=== PATIENT | female | born 1990 | race Caucasian/White ===

== ENCOUNTER 2017-10-07 07:58 | Inpatient (IN) | payer SELFPAY ==
[2017-10-07] MEDS ORDERED: BRETHINE IVP PRN (10:08)
[2017-10-07] MEDS ORDERED: STADOL IV PRN (10:08)
[2017-10-07] MEDS ORDERED: ePHEDrine SULFATE IV PRN ×2 (10:08→20:23)
[2017-10-07] MEDS ORDERED: XYLOCAINE 2% INFILTRATI ONE (10:08)
[2017-10-07] MEDS ORDERED: BRETHINE SUB-Q PRN (10:08)
--- NOTE | 2017-10-07 10:42 | History and Physical Report ---
History of Present Illness Date of examination: 10/07/17 Date of admission: 10/07/17 07:58 Chief complaint: Presents for a scheduled induction due to SGA History of present illness: Early entry to care, 2nd trimester complicated by migraine HAs, given Fioricet. Third trimester complicated by labor concerns, received Betamethasome series 08/18 at [place], also complicated by small for gestational age. Past History Past Medical History: neurologic (Migraine HAs) Past Surgical History: other (Lasik (2016); Rhinoplasty (2017)) SUPPORT MERCHANDISER History: abnormal PAP smear (ASCUS +HPV (2017)) Family/Genetic History: none Social history: no significant social history - Obstetrical History Expected Date of Delivery: 10/25/17 Actual Gestation: 37 Week(s) 3 Day(s) : 1 Medications and Allergies Allergies Allergy/AdvReac Type Severity Reaction Status Date / Time No Known Allergies Allergy Unverified 10/07/17 09:11 Home Medications Medication Instructions Recorded Confirmed Last Taken Type Vit Calc,Iron,Folic 1 each PO DAILY 10/07/17 10/07/17 10/06/17 09:00 History [ Vitamins] 1 Active Meds: Active Medications Butorphanol Tartrate (Stadol) 2 mg IV Q2H PRN PRN Reason: Pain , Severe (7-10) Ephedrine Sulfate (Ephedrine Sulfate) 10 mg IV Q2M PRN PRN Reason: Hypotension Lactated Ringer's (Lactated Ringers) 1,000 mls @ 125 mls/hr IV DIRECT ALEXIA Lactated Ringer's (Lactated Ringers) 1,000 mls @ 125 mls/hr IV DIRECT ALEXIA Oxytocin/Sodium Chloride (Pitocin/Ns 20 Unit/1000ml Drip) 20 units in 1,000 mls @ 125 mls/hr IV DIRECT ALEXIA Oxytocin/Sodium Chloride (Pitocin/Ns 30 Unit/500ml) 30 units in 500 mls @ 4 mls /hr IV TITR ALEXIA; 4 MILLIUNITS/MIN PRN Reason: Protocol Lidocaine (Xylocaine 2%) 20 ml INFILTRATI ONCE ONE Stop: 10/07/17 10:09 Mineral Oil (Mineral Oil) 30 ml PO QHS PRN PRN Reason: Constipation Terbutaline Sulfate (Brethine) 0.25 mg SUB-Q ONCE PRN PRN Reason: Hyperstimulation/Hypertonicity Terbutaline Sulfate (Brethine) 0.25 mg IVP ONCE PRN PRN Reason: Hyperstimulation/Hypertonicity Review of Systems All systems: negative - Vital Signs Vital signs: Vital Signs Temp Pulse Resp BP 97.5 F L 87 18 109/67 10/07/17 09:13 10/07/17 09:13 10/07/17 09:13 10/07/17 09:13 Temp Pulse Resp BP Pulse Ox 97.5 F L 87 18 109/67 10/07/17 09:13 10/07/17 09:18 10/07/17 09:13 10/07/17 09:18 - Physical Exam Breasts: Positive: normal Cardiovascular: Regular rate Lungs: Positive: Clear to auscultation, Normal air movement Abdomen: Positive: normal appearance, soft, normal bowel sounds Genitourinary (Female): Positive: normal external genitalia, normal perenium Vagina: Positive: normal moisture Uterus: Positive: enlarged Anus/Rectum: Positive: normal perianal skin - Obstetrical FHR: category 1 Uterine Contraction Monitor Mode: External Cervical Dilatation: 4.5 Cervical Effacement Percentage: 70 station: -2 Uterine Contraction Pattern: Regular Uterine Tone Measurement Phase: Resting Uterine Contraction Intensity: Moderate Results All other labs normal. Assessment and Plan A: IUP @ 37 3/7 Weeks Category I Tracing Small for Gestational Age GBS Negative P: Admit to L&D per routine orders Pitocin Augmentation
[2017-10-07 10:51] LABS: Basophils % (Auto) 0.5 % (0.0-1.8); Hematocrit 36.1 % (30.3-42.9); Hemoglobin 12.5 gm/dl (10.1-14.3); Mean Corpuscular HGB Conc 35 % (30-34); Mean Corpuscular Hemoglobin 32 pg (28-32); Mean Corpuscular Volume 92 fl (79-97); Platelet Count 232 K/mm3 (140-440); Red Blood Count 3.94 M/mm3 (3.65-5.03); Red Cell Distribution Width 13.2 % (13.2-15.2); White Blood Count 8.1 K/mm3 (4.5-11.0)
[2017-10-07] MEDS ORDERED: PITOCin/NS 30 UNIT/500ML 30 UNITS/500 ML BAG IV SCH (11:00)
[2017-10-07] MEDS ORDERED: PITOCin/NS 20 UNIT/1000ML DRIP 20 UNITS/1,000 ML BAG IV SCH ×2 (11:00→23:00)
[2017-10-07] MEDS ORDERED: LACTATED RINGERS 1,000 ML IV SCH (11:00)
[2017-10-07] MEDS: LACTATED RINGERS 1,000 ML IV SCH ×3 (11:25→19:00)
--- NOTE | 2017-10-07 15:39 | Progress Note ---
Assessment and Plan A: IUP @ 37 3/7 Weeks Category I Tracing Small for Gestational Age GBS Negative P: AROM IUPC placed Continue Pitocin Augmentation Subjective - Subjective Date of service: 10/07/17 Interval history: Early entry to care, 2nd trimester complicated by migraine HAs, given Fioricet. Third trimester complicated by labor concerns, received Betamethasome series 08/18 at [place], also complicated by small for gestational age. Objective - Vital Signs Vital Signs: Vital Signs - 12hr 10/07/17 10/07/17 10/07/17 09:13 09:18 11:25 Temperature 97.5 F L Pulse Rate 87 87 86 Respiratory 18 Rate Blood Pressure 109/67 114/73 Blood Pressure 109/67 [Left] 10/07/17 10/07/17 10/07/17 11:53 13:05 13:35 Temperature Pulse Rate 96 H 86 90 Respiratory Rate Blood Pressure 116/72 109/66 113/70 Blood Pressure [Left] 10/07/17 10/07/17 10/07/17 14:00 14:06 14:37 Temperature 98.2 F Pulse Rate 88 77 Respiratory 20 Rate Blood Pressure 119/61 97/47 Blood Pressure [Left] 10/07/17 15:05 Temperature Pulse Rate 70 Respiratory Rate Blood Pressure 105/56 Blood Pressure [Left] - Exam Breasts: normal Cardiovascular: Regular rate Lungs: Clear to auscultation, Normal air movement Abdomen: Present: normal appearance, soft, normal bowel sounds Uterus: Present: normal, firm, fundal height below umbilicus FHR: category 1 Uterine Contraction Monitor Mode: External Cervical Dilatation: 5 (Scant return of clear fluid upon AROM @ 1533) Cervical Effacement Percentage: 70 station: -2 Uterine Contraction Pattern: Irregular Uterine Tone Measurement Phase: Resting Uterine Contraction Intensity: Moderate Extremities: normal - Labs Labs: Abnormal Labs 10/07/17 10:26 MCHC 35 H [place] % (Auto) 9.6 H Laboratory Results - last 24 hr 10/07/17 10/07/17 10:26 10:26 WBC 8.1 RBC 3.94 Hgb 12.5 Hct 36.1 MCV 92 MCH 32 MCHC 35 H RDW 13.2 Plt Count 232 Lymph % (Auto) 23.7 [place] % (Auto) 9.6 H Eos % (Auto) 1.0 Baso % (Auto) 0.5 Lymph # 1.9 [place] # 0.8 Eos # 0.1 Baso # 0.0 Seg Neutrophils % 65.2 Seg Neutrophils # 5.3 Blood Type A POSITIVE Antibody Screen Negative
[2017-10-07] MEDS ORDERED: METHERGINE IM ONE (16:22)
[2017-10-07] MEDS ORDERED: ePHEDrine SULFATE ONE (19:10)
[2017-10-07] MEDS ORDERED: NARCAN 2 MG/2 ML IV PRN (20:23)
--- NOTE | 2017-10-07 20:23 | Anesthesia Consultation ---
Anesthesia Consult and Med Hx Date of service: 10/07/17 - Airway Anesthetic Teeth Evaluation: Good ROM Head & Neck: Adequate Mental/Hyoid Distance: Adequate Mallampati Class: Class II Intubation Access Assessment: Probably Good - Pulmonary Exam CTA: Yes - Cardiac Exam Cardiac Exam: RRR - Pre-Operative Health Status ASA Pre-Surgery Classification: ASA2 Proposed Anesthetic Plan: Epidural, Spinal - Pulmonary Hx Asthma: No COPD: No Hx Pneumonia: No - Cardiovascular System Hx Hypertension: No - Central Nervous System Hx Seizures: No Hx Psychiatric Problems: No - Endocrine Hx Renal Disease: No Hx End Stage Renal Disease: No Hx Hypothyroidism: No Hx Hyperthyroidism: No - Hematic Hx Anemia: No Hx Sickle Cell Disease: No - Other Systems Hx Alcohol Use: No - Additional Comments Anesthesia Medical History Comments: IUP
[2017-10-07] MEDS ORDERED: fentaNYL-BUPIV 2 MCG/ML-0.125% 200 MCG/100 ML BAG EPIDURAL ONE (20:25)
[2017-10-07] MEDS ORDERED: fentaNYL-BUPIV 2 MCG/ML-0.125% 200 MCG/100 ML BAG EPIDURAL SCH (21:00)
[2017-10-07] MEDS ORDERED: MINERAL OIL PO PRN (22:00)
--- NOTE | 2017-10-07 22:30 | Procedure Note ---
OB Delivery Note - Delivery Date of Delivery: 10/07/17 Surgeon: DESIRE GRIFFIN Estimated blood loss: 200cc - Vaginal Delivery presentation: vertex Delivery position: OA Intrapartum events: hydramnios Delivery induction: oxytocin Delivery augmentation: pitocin Delivery monitor: external FHT, internal uterine Route of delivery: Delivery placenta: spontaneous Delivery cord: nuchal cord (x1), 3 umbilical vessels Episiotomy: none Delivery laceration: 1st degree (left labial), vaginal side wall Delivery repair: vicryl Anesthesia: epidural Delivery comments: delivered OA and placed on mom's chest for [id number] bonding and delayed cord clamping. - A at 1 minute: 8 at 5 minutes: 9 Gender: Female (2569gms)
[2017-10-07] MEDS ORDERED: PHENERGAN PR PRN (22:32)
[2017-10-07] MEDS ORDERED: BENADRYL PO PRN (22:32)
[2017-10-07] MEDS ORDERED: DULCOLAX PR PRN (22:32)
[2017-10-07] MEDS ORDERED: NORCO 5/325 PO PRN (22:32)
[2017-10-07] MEDS ORDERED: TUCKS PAD TP PRN (22:32)
[2017-10-07] MEDS ORDERED: MILK OF MAGNESIA PO PRN (22:32)
[2017-10-07] MEDS ORDERED: PHENERGAN PO PRN (22:32)
[2017-10-07] MEDS ORDERED: ZOFRAN IV PRN (22:32)
[2017-10-07] MEDS ORDERED: TYLENOL PO PRN (22:32)
[2017-10-07] MEDS ORDERED: SODIUM CHLORIDE FLUSH SYRINGE 10 ML IV NR (23:00)
[2017-10-08] MEDS: MOTRIN PO SCH ×4 (00:30→18:06)
[2017-10-08] MEDS ORDERED: M-M-R II VACCINE SUB-Q ONE (06:00)
[2017-10-08] MEDS ORDERED: BOOSTRIX IM ONE (06:00)
[2017-10-08] MEDS ORDERED: DERMOPLAST TP PRN (08:47)
--- NOTE | 2017-10-08 10:09 | Progress Note ---
Assessment and Plan A: PPD 1 - stable P: Continue current management D/C home in the AM 10/09 F/U in 6 wks for PP exam Subjective - Subjective Date of service: 10/08/17 Principal diagnosis: Normal Spontaneous Vaginal Delivery Patient reports: appetite normal, voiding normally, pain well controlled, ambulating normally : doing well, nursing well Objective - Vital Signs Latest vital signs: Vital Signs Temp Pulse Resp BP BP Pulse Ox 10/08/17 08:23 98.3 F 87 16 92/50 97 10/08/17 04:20 98.6 F 68 18 123/73 10/08/17 00:30 98.0 F 77 18 111/66 10/07/17 23:21 98 H 127/62 10/07/17 23:06 91 H 116/58 10/07/17 22:51 83 122/57 10/07/17 22:37 102 H 110/55 10/07/17 22:29 117 H 96 10/07/17 22:25 114 H 94 10/07/17 22:24 111 H 96 10/07/17 22:19 158 H 96 10/07/17 22:15 135 H 94 10/07/17 22:14 129 H 96 10/07/17 22:10 97 H 94 10/07/17 22:09 102 H 97 10/07/17 22:07 92 H 128/70 10/07/17 22:04 56 L 95 10/07/17 21:59 87 98 10/07/17 21:54 86 98 10/07/17 21:51 71 111/56 10/07/17 21:49 70 98 10/07/17 21:44 76 97 10/07/17 21:39 67 98 10/07/17 21:36 72 108/55 10/07/17 21:34 72 98 10/07/17 21:29 78 98 10/07/17 21:24 77 99 10/07/17 21:21 72 132/56 10/07/17 21:19 74 98 10/07/17 21:14 88 98 10/07/17 21:09 98 H 99 10/07/17 21:07 69 113/56 10/07/17 21:04 73 98 10/07/17 20:59 73 99 10/07/17 20:54 74 98 10/07/17 20:51 72 116/58 10/07/17 20:49 74 99 10/07/17 20:44 86 98 10/07/17 20:39 76 98 10/07/17 20:35 93 H 118/58 10/07/17 20:34 75 97 10/07/17 20:33 75 108/65 10/07/17 20:31 71 117/56 10/07/17 20:29 74 105/56 97 10/07/17 20:27 79 110/59 10/07/17 20:25 78 110/61 10/07/17 20:24 73 96 10/07/17 20:23 77 106/64 10/07/17 20:21 99 H 105/61 10/07/17 20:19 63 98/55 96 10/07/17 20:17 62 117/57 10/07/17 20:16 78 94 10/07/17 20:14 89 94 10/07/17 20:10 91 H 90 10/07/17 20:09 76 98 10/07/17 19:44 68 129/72 10/07/17 19:23 75 137/80 10/07/17 19:15 97.5 F L 75 15 137/80 10/07/17 19:04 78 137/79 10/07/17 18:44 66 130/71 10/07/17 18:24 74 122/75 10/07/17 15:05 70 105/56 10/07/17 14:37 77 97/47 10/07/17 14:06 88 119/61 10/07/17 14:00 98.2 F 20 10/07/17 13:35 90 113/70 10/07/17 13:05 86 109/66 10/07/17 11:53 96 H 116/72 10/07/17 11:25 86 114/73 Intake and Output 10/07/17 10/08/17 10/08/17 23:59 07:59 15:59 Intake Total 941.667 240 Output Total 650 600 500 Balance 291.667 -360 -500 Intake: IV 941.667 Lactated Ringers 1,000 ml 941.667 @ 125 mls/hr IV DIRECT ALEXIA Rx#:[id number] Oral 240 Output: Urine 650 600 500 Indwelling Catheter 400 Void 250 600 500 Other: Total, Intake Amount 240 Total, Output Amount 400 600 500 Estimated Blood Loss 200 - Exam Breasts: Present: normal, Cardiovascular: Present: Regular rate, Normal S1, Normal S2, No murmurs Lungs: Present: Clear to auscultation, Normal air movement Abdomen: Present: normal appearance, soft Vulva: left: laceration/episiotomy (labial/vaginal side wall) Uterus: Present: normal, firm, fundal height below umbilicus Extremities: Present: normal Deep Tendon Reflex Grade: Normal +2 - Labs Labs: Abnormal lab results 10/07/17 Range/Units 10:26 MCHC 35 H (30-34) % [place] % (Auto) 9.6 H (0.0-7.3) %
--- NOTE | 2017-10-08 10:10 | Discharge Summary ---
Providers - Providers Date of Admission: 10/07/17 07:58 Date of discharge: 10/09/17 Attending physician: CHANTAL MORRIS MD Primary care physician: CHANTAL MORRIS MD Hospitalization Reason for admission: induction of labor (SGA), IUP at term (37w3d) Delivery: Episiotomy: none Laceration: vaginal side wall, 1st degree (labial) complications: none Discharge diagnosis: IUP at term delivered [place] baby: female Condition at discharge: Stable Disposition: DC-01 TO HOME OR SELFCARE Plan - Provider Discharge Summary Activity: routine, no sex for 6 weeks, no heavy lifting 4 weeks, no strenuous exercise Diet: routine Instructions: routine Additional instructions: [] Smoking cessation referral if applicable(refer to patient education folder for contact #) [] Refer to [facility] Booklet Call your doctor immediately for: * Fever > 100.5 * Heavy vaginal bleeding ( >1 pad per hour) * Severe persistent headache * Shortness of breath * Reddened, hot, painful area to leg or breast * Drainage or odor from incision. * Keep incision clean and dry at all times and follow doctor's instructions regarding bathing/showering - Follow up plan Follow up: CHANTAL MORRIS MD [Primary Care Provider] - 6 Weeks ( Exam)
[2017-10-08] MEDS: PRENATAL VITAMIN PO SCH (10:26)
[2017-10-08] MEDS: COLACE PO SCH ×2 (10:26→21:14)
[2017-10-08] MEDS: FEOSOL PO SCH ×2 (10:26→21:14)
[2017-10-08 10:49] LABS: Hematocrit 30.8 % (30.3-42.9); Hemoglobin 10.4 gm/dl (10.1-14.3)
[2017-10-09] MEDS: MOTRIN PO SCH ×4 (00:49→17:58)
[2017-10-09] MEDS: PRENATAL VITAMIN PO SCH (10:31)
[2017-10-09] MEDS: COLACE PO SCH (10:31)
[2017-10-09] MEDS: FEOSOL PO SCH (10:31)
[2017-10-09] MEDS ORDERED: Fluarix Quad 2017-2018(36 MOS+ IM ONE (12:00)
[2017-10-09 19:31] VITALS: BP 137/83
== END 2017-10-09 20:20 | disposition home or self-care (01) | DRG 775 ==
LOC: LD 07:58 → OB 23:57
PROVIDERS: ADMIT Obstetrics & Gynecology; ATTEND Obstetrics & Gynecology
PROC: 10E0XZZ Delivery of Products of Conception, External Approach (ICD-10-PCS; principal; 2017-10-07)
PROC: 3E0R3BZ Introduction of Anesthetic Agent into Spinal Canal, Percutaneous Approach (ICD-10-PCS; 2017-10-07)
PROC: 00HU33Z Insertion of Infusion Device into Spinal Canal, Percutaneous Approach (ICD-10-PCS; 2017-10-07)
PROC: 3E0234Z Introduction of Serum, Toxoid and Vaccine into Muscle, Percutaneous Approach (ICD-10-PCS; 2017-10-07)
DX: O69.81X0 Labor and delivery complicated by cord around neck, without compression, not applicable or unspecified (principal); O99.354 Diseases of the nervous system complicating childbirth; Z3A.37 37 weeks gestation of pregnancy; Z37.0 Single live birth; O70.0 First degree perineal laceration during delivery; G43.909 Migraine, unspecified, not intractable, without status migrainosus; Z23 Encounter for immunization
CPT/HCPCS: 36415; 85014; 85018; 85025; 86850; 86900; 86901; 90471; 90686; 90715; 99211; G0008; G0463; J0595; J2210; J2590; J7120